=== PATIENT | female | born 1960 | race Caucasian/White ===

== ENCOUNTER → 2024-01-15 13:58 | Outpatient (REF) | payer MEDICARE, SELFPAY | LOC: WDC 13:58 | PROVIDERS: ATTENDING PHYSICIAN Internal Medicine | DX: Z12.31 Encounter for screening mammogram for malignant neoplasm of breast (principal); G89.4 Chronic pain syndrome | CPT/HCPCS: 77063; 77067 ==

== ENCOUNTER → 2024-03-17 08:15 | Outpatient (REF) | payer MEDICARE, SELFPAY ==
[2024-03-17 08:30] VITALS: BP 130/71; BP_SYST 67
== END ==
LOC: RADI 08:15
PROVIDERS: ATTENDING PHYSICIAN Internal Medicine Infectious Disease; FAMILY PHYSICIAN Internal Medicine
DX: A69.20 Lyme disease, unspecified (principal)
CPT/HCPCS: 36573

== ENCOUNTER 2024-03-17 09:17 | Outpatient (RCR) | payer MEDICARE, SELFPAY ==
[2024-03-17 09:27] VITALS: BP 142/76
[2024-03-17] MEDS: ROCEPHIN 60 MG IV (09:40)
[2024-03-17 10:57] LABS: % Basophils 0.5 % (0-2); % Eosinophils 4.5 % (0-6); % Immature Granulocytes 0.2 % (0-0.5); % Lymphocytes 35.1 % (20.5-51.1); % Monocytes 9.2 % (1.7-9.3); % Neutrophils 50.5 % (42.2-75.2); Absolute Eosinophils 0.4 10^3/uL (0-0.7); Absolute Lymphocytes 2.8 10^3/uL (1.2-3.4); Absolute Monocytes 0.7 10^3/uL (0.1-0.6); Absolute Neutrophils 4.1 10^3/uL (1.4-6.5); Hematocrit 35.3 % (37.0-47.0); Hemoglobin 11.9 g/dL (12.0-16.0); Mean Corp Hgb Conc. 33.7 g/dL (33.0-37.0); Mean Corpuscular Hgb 30.6 pg (27.0-31.0); Mean Corpuscular Volume 90.7 fL (81.0-99.0); Mean Platelet Volume 9.2 fL (7.4-10.4); Platelet Count 245 10^3/uL (130-400); Red Blood Cell Count 3.89 10^6/uL (4.20-5.40); Red Cell Dist. Width 12.1 % (11.5-14.5); White Blood Cell Count 8.1 10^3/uL (4.8-10.8)
[2024-03-17 11:40] LABS: ALT (SGPT) 13 U/L (0-35); AST (SGOT) 23 U/L (14-36); Albumin 3.8 g/dl (3.5-5.0); Alkaline Phosphatase 52 U/L (38-126); Blood Urea Nitrogen 17 mg/dl (7-17); Carbon Dioxide 26 mmol/L (22-30); Chloride 105 mmol/L (98-107); Glucose 92 mg/dl (70-99); Potassium 4.3 mmol/L (3.5-5.1); Sodium 138 mmol/L (135-145); Total Bilirubin 0.3 mg/dl (0.2-1.3); Total Protein 6.2 g/dl (6.3-8.2); eGFR > 60.00
== END 2024-03-18 09:35 | disposition home or self-care (01) ==
LOC: OID 09:17
PROVIDERS: ATTENDING PHYSICIAN Student in an Organized Health Care Education/Training Program; FAMILY PHYSICIAN Internal Medicine
DX: A69.20 Lyme disease, unspecified (principal)
CPT/HCPCS: 80053; 85025; 96365

== ENCOUNTER 2024-04-15 10:55 | Outpatient (RCR) | payer MEDICARE, SELFPAY ==
[2024-04-07 09:29] VITALS: BP 158/82
[2024-04-07 10:46] LABS: % Basophils 1.6 % (0-2); % Eosinophils 5.3 % (0-6); % Immature Granulocytes 0.3 % (0-0.5); % Lymphocytes 31.6 % (20.5-51.1); % Monocytes 8.2 % (1.7-9.3); Absolute Basophils 0.1 10^3/uL (0-0.2); Absolute Eosinophils 0.4 10^3/uL (0-0.7); Absolute Lymphocytes 2.2 10^3/uL (1.2-3.4); Absolute Monocytes 0.6 10^3/uL (0.1-0.6); Absolute Neutrophils 3.7 10^3/uL (1.4-6.5); Hematocrit 36.8 % (37.0-47.0); Hemoglobin 12.4 g/dL (12.0-16.0); Mean Corp Hgb Conc. 33.7 g/dL (33.0-37.0); Mean Corpuscular Hgb 29.6 pg (27.0-31.0); Mean Corpuscular Volume 87.8 fL (81.0-99.0); Mean Platelet Volume 9.8 fL (7.4-10.4); Nucleated Red Blood Cells % 0 %; Platelet Count 301 10^3/uL (130-400); Red Blood Cell Count 4.19 10^6/uL (4.20-5.40); Red Cell Dist. Width 12.2 % (11.5-14.5); White Blood Cell Count 6.9 10^3/uL (4.8-10.8)
[2024-04-07 11:04] LABS: ALT (SGPT) 18 U/L (0-35); AST (SGOT) 25 U/L (14-36); Albumin 4.1 g/dl (3.5-5.0); Alkaline Phosphatase 38 U/L (38-126); Blood Urea Nitrogen 14 mg/dl (7-17); Calcium 9.3 mg/dl (8.4-10.2); Carbon Dioxide 26 mmol/L (22-30); Chloride 104 mmol/L (98-107); Glucose 105 mg/dl (70-99); Sodium 142 mmol/L (135-145); Total Bilirubin 0.5 mg/dl (0.2-1.3); Total Protein 6.7 g/dl (6.3-8.2); eGFR > 60.00
[2024-04-15 12:05] VITALS: BP 127/72
--- NOTE | 2024-04-15 12:06 | PTCARENOTE ---
1110 right picc line removed per policy, TCL 34CM. Tolerated procedure.
== END 2024-04-16 09:59 | disposition home or self-care (01) ==
LOC: OID 10:55
PROVIDERS: ATTENDING PHYSICIAN Student in an Organized Health Care Education/Training Program; FAMILY PHYSICIAN Internal Medicine
DX: A69.23 Arthritis due to Lyme disease (principal)
CPT/HCPCS: 36415; 36591; 80053; 85025

== ENCOUNTER → 2024-08-02 10:44 | Outpatient (REF) | payer MEDICARE, SELFPAY | LOC: HWRAD 10:44 | PROVIDERS: ATTENDING PHYSICIAN Internal Medicine | DX: M25.512 Pain in left shoulder (principal) | CPT/HCPCS: 73030 ==

== ENCOUNTER 2025-02-23 06:25 | Day surgery (SDC) | payer MEDICARE, SELFPAY | END 2025-02-23 10:56 | disposition home or self-care (01) | LOC: GI 06:25 | PROVIDERS: ATTENDING PHYSICIAN Specialist; FAMILY PHYSICIAN Internal Medicine | DX: Z12.11 Encounter for screening for malignant neoplasm of colon (principal); D12.0 Benign neoplasm of cecum; K63.89 Other specified diseases of intestine; K57.30 Diverticulosis of large intestine without perforation or abscess without bleeding; K59.00 Constipation, unspecified; K29.70 Gastritis, unspecified, without bleeding; K31.7 Polyp of stomach and duodenum; K31.89 Other diseases of stomach and duodenum; R13.10 Dysphagia, unspecified; Z86.0101 Personal history of adenomatous and serrated colon polyps; Z80.0 Family history of malignant neoplasm of digestive organs | CPT/HCPCS: 45380; 43239; 88305; 88342 ==

== ENCOUNTER → 2025-04-06 13:47 | Outpatient (REF) | payer MEDICARE, SELFPAY | LOC: HWRAD 13:47 | PROVIDERS: ATTENDING PHYSICIAN Internal Medicine | DX: Z78.0 Asymptomatic menopausal state (principal); Z13.820 Encounter for screening for osteoporosis | CPT/HCPCS: 77080 ==